=== PATIENT | female | born 1975 ===

== ENCOUNTER 2017-02-25 15:07 | Emergency (ER) | payer OTHER ==
[2017-02-25 15:07] VITALS: BMI 35.7
[2017-02-25] MEDS ORDERED: Sodium Chloride 0.9% 1,000 ML IV ONE (15:35)
[2017-02-25] MEDS ORDERED: Iohexol 240 (50 ml) PO ONE (15:41)
[2017-02-25] MEDS ORDERED: Sodium Chloride 0.9% 1,000 ML ONE (15:46)
[2017-02-25] MEDS ORDERED: Iohexol 240 (50 ml) ONE (15:46)
[2017-02-25 15:51] LABS: RBC URINE 1 /hpf (0-3); URINE BILIRUBIN NEGATIVE (NEGATIVE); URINE BLOOD NEGATIVE (NEGATIVE); URINE COLOR Yellow (YELLOW); URINE GLUCOSE (UA) NORMAL (Normal); URINE KETONE TRACE mg/dL (NEGATIVE); URINE LEUKOCYTE ESTERASE NEG Leu/uL (Negative); URINE PROTEIN NEGATIVE (NEGATIVE); URINE UROBILINOGEN NORMAL mg/dL (0.2-1.0); WBC URINE 2 /hpf (0-5)
[2017-02-25 15:51] LABS: BASO % 0.4 % (0.0-2.0); EOS # 0.1 K/uL (0.0-0.7); EOS % 0.9 % (0.0-4.0); HEMATOCRIT 38.5 % (34.0-47.0); LYMPH # 2.5 K/uL (1.0-4.3); LYMPH % 33.7 % (20.0-40.0); MEAN CELL VOLUME 86.1 fL (81.0-99.0); MEAN CORPUSCULAR HEMOGLOBIN 29.5 pg (27.0-31.0); MEAN CORPUSCULAR HGB CONC 34.3 g/dL (33.0-37.0); MEAN PLATELET VOLUME 8.2 fL (7.2-11.7); MONO # 0.4 K/uL (0.0-0.8); NRBC % 0.1 % (0.0-2.0); RED CELL DISTRIBUTION WIDTH 12.9 % (11.5-14.5); WHITE BLOOD COUNT 7.3 K/uL (4.8-10.8)
--- NOTE | 2017-02-25 16:02 | C.PDOC ---
History Of Present Illness 41 y/o female c/o LLQ pain associated with mild dysuria for 3 weeks. Patient took several doses of Ampicillin which she had at home but continues to have persistent discomfort. Patient never experienced this pain before. Denies fever , chills, nausea, vomiting, or diarrhea. No vaginal bleeding or discharge. No back pain. Time Seen by Provider: 02/25/17 15:28 Chief Complaint (Nursing): Abdominal Pain History Per: Patient History/Exam Limitations: no limitations Onset/Duration Of Symptoms: Days (3 weeks) Current Symptoms Are (Timing): Still Present Severity: Mild Location Of Pain/Discomfort: LLQ Quality Of Discomfort: "Pain" Associated Symptoms: denies: Fever, Chills, Nausea, Vomiting, Diarrhea, Back Pain Alleviating Factors: denies: OTC Meds (From another country, No relief) Recent travel outside of the [place]: No Additional History Per: Patient Abnormal Vaginal Bleeding: No Past Medical History Reviewed: Historical Data, Nursing Documentation, Vital Signs Vital Signs: Last Vital Signs Temp 97.9 F 02/25/17 18:16 Pulse 70 02/25/17 18:16 Resp 20 02/25/17 18:16 BP 105/71 02/25/17 18:16 Pulse Ox 100 02/25/17 18:16 Family History: States: Unknown Family Hx - Social History Hx Alcohol Use: No Hx Substance Use: No - Immunization History Hx Tetanus Toxoid Vaccination: No Hx Influenza Vaccination: No Hx Pneumococcal Vaccination: No Review Of Systems Except As Marked, All Systems Reviewed And Found Negative. Constitutional: Negative for: Fever, Chills Gastrointestinal: Positive for: Abdominal Pain (LLQ). Negative for: Nausea, Vomiting, Diarrhea Genitourinary: Positive for: Dysuria. Negative for: Vaginal Discharge, Vaginal Bleeding Musculoskeletal: Negative for: Back Pain Physical Exam - Physical Exam Appears: Non-toxic, No Acute Distress Skin: Warm, Dry Head: Atraumatic, Normacephalic Chest: Symmetrical Cardiovascular: Rhythm Regular, No Murmur Respiratory: Normal Breath Sounds, No Rales, No Rhonchi, No Wheezing Gastrointestinal/Abdominal: Soft, Tenderness (LLQ and suprapubic tenderness), No Guarding, No Rebound Back: Normal Inspection, No CVA Tenderness Neurological/Psych: Oriented x3 ED Course And Treatment - Laboratory Results Result Diagrams: 02/25/17 15:44 02/25/17 15:44 Lab Interpretation: No Acute Changes Urine POC: Negative Pulse Ox Interpretation: Normal - CT Scan/US Abdomen and Pelvis Other Rad Studies (CT/US): Read By Radiologist, Radiology Report Reviewed CT/US Interpretation: Accession No. : [id number]. Patient Name / ID : RG WISDOM / [id number]. Exam Date : 02/25/2017 17:23:33 ( Approved ). Study Comment : Sex / Age : F / 41Y. Creator : Shyann Pak MD. Dictator : Shyann Pak MD. Sales Forecast Analyst : Garment Turner : Shyann Pak MD. Approver2 : Report Date : 02/25/2017 17:55:42. My Comment : . PROCEDURE: CT Abdomen and Pelvis with oral and IV contrast. HISTORY: LLQ pain. COMPARISON: CT abdomen pelvis with contrast performed 12/24. TECHNIQUE: Contiguous axial images of the abdomen and pelvis. Oral and IV contrast was administered. Coronal and Sagittal reformats generated and reviewed. Contrast dose: 100 cc Visipaque 320. Radiation dose: Total exam DLP = 755.87 mGy-cm. This CT exam was performed using one or more of the following dose reduction techniques: Automated exposure control, adjustment of the mA and/or kV according to patient size, and/or use of iterative reconstruction technique. FINDINGS: LOWER THORAX: No visible consolidation, pleural effusion, or pneumothorax. LIVER: Unremarkable. GALLBLADDER AND BILE DUCTS: Unremarkable. PANCREAS: Unremarkable. SPLEEN: Unremarkable. ADRENALS: Unremarkable. KIDNEYS AND URETERS: The kidneys enhance symmetrically. No hydronephrosis or obstructing renal calculus. Nonobstructing bilateral renal calculi. BLADDER: The urinary bladder appears unremarkable. REPRODUCTIVE: Uterus is present. Probable left ovarian cysts measuring up to 1.8 cm. APPENDIX: The appendix appears within normal limits of caliber. No secondary signs of acute appendicitis. BOWEL: The stomach is nondistended. The bowel loops appear within normal limits of caliber without evidence of intestinal obstruction. Moderate constipation. PERITONEUM: No significant free fluid. No definite free air. LYMPH NODES: No bulky lymphadenopathy identified. VASCULATURE: No aortic aneurysm. BONES: Degenerative changes of the spine. OTHER FINDINGS: Tiny fat containing umbilical hernia. IMPRESSION: Nonobstructing bilateral renal calculi. Probable left ovarian cysts measuring up to 1.8 cm. Suggest pelvic ultrasound for further evaluation. Moderate constipation. Tiny fat containing umbilical hernia. Reevaluation Time: 18:44 Reassessment Condition: Improved Medical Decision Making Medical Decision Making: Plans: * CT Abd/Pel w/ IV and PO contrast * Blood labs * UA * IV fluids * Omnipaque Disposition Counseled Patient/Family Regarding: Studies Performed, Diagnosis, Need For Followup, Rx Given - Disposition Referrals: [facility] [Outside] Disposition: HOME/ ROUTINE Disposition Time: 18:49 Condition: STABLE Prescriptions: Naproxen [Naprosyn] 1 tab PO BID PRN #25 tab PRN Reason: Pain Instructions: Ovarian Cyst (ED), Constipation (ED) Forms: [employer] (Uzbek) Print Language: HAITIAN - Clinical Impression Clinical Impression: Constipation, Ovarian cyst - Scribe Statement The provider has reviewed the documentation as recorded by the Sebastianibmy miles All medical record entries made by the Sebastianibmy were at my direction and personally dictated by me. I have reviewed the chart and agree that the record accurately reflects my personal performance of the history, physical exam, medical decision making, and the department course for this patient. I have also personally directed, reviewed, and agree with the discharge instructions and disposition.
[2017-02-25 16:09] LABS: CHLORIDE 101 mmol/L (98-107)
[2017-02-25 16:10] LABS: POTASSIUM 3.5 mmol/L (3.6-5.2); SODIUM 136 mmol/L (132-148)
[2017-02-25 16:12] LABS: ALB/GLOB RATIO 1.1 (1.0-2.1); ALKALINE PHOSPHATASE 54 U/L (38-126); ALT/SGPT 43 U/L (9-52); AST/SGOT 25 U/L (14-36); BILIRUBIN,TOTAL 0.4 mg/dL (0.2-1.3); BLOOD UREA NITROGEN 11 mg/dL (7-17); CARBON DIOXIDE 23 mmol/L (22-30); GFR AFRICAN-AMERICAN > 60; GLUCOSE,RANDOM 77 mg/dL (65-105); TOTAL PROTEIN 7.9 g/dL (6.3-8.3)
[2017-02-25 16:13] LABS: CALCIUM 9.1 mg/dl (8.6-10.4)
--- NOTE | 2017-02-25 17:57 | CT ---
PROCEDURE: CT Abdomen and Pelvis with oral and IV contrast. HISTORY: LLQ pain COMPARISON: CT abdomen pelvis with contrast performed 12/25/15 TECHNIQUE: Contiguous axial images of the abdomen and pelvis. Oral and IV contrast was administered. Coronal and Sagittal reformats generated and reviewed. Contrast dose: 100 cc Visipaque 320 Radiation dose: Total exam DLP = 755.87 mGy-cm. This CT exam was performed using one or more of the following dose reduction techniques: Automated exposure control, adjustment of the mA and/or kV according to patient size, and/or use of iterative reconstruction technique. FINDINGS: LOWER THORAX: No visible consolidation, pleural effusion, or pneumothorax. LIVER: Unremarkable. GALLBLADDER AND BILE DUCTS: Unremarkable. PANCREAS: Unremarkable. SPLEEN: Unremarkable. ADRENALS: Unremarkable. KIDNEYS AND URETERS: The kidneys enhance symmetrically. No hydronephrosis or obstructing renal calculus. Nonobstructing bilateral renal calculi. BLADDER: The urinary bladder appears unremarkable. REPRODUCTIVE: Uterus is present. Probable left ovarian cysts measuring up to 1.8 cm. APPENDIX: The appendix appears within normal limits of caliber. No secondary signs of acute appendicitis. BOWEL: The stomach is nondistended. The bowel loops appear within normal limits of caliber without evidence of intestinal obstruction. Moderate constipation. PERITONEUM: No significant free fluid. No definite free air. LYMPH NODES: No bulky lymphadenopathy identified. VASCULATURE: No aortic aneurysm. BONES: Degenerative changes of the spine. OTHER FINDINGS: Tiny fat containing umbilical hernia. IMPRESSION: Nonobstructing bilateral renal calculi. Probable left ovarian cysts measuring up to 1.8 cm. Suggest pelvic ultrasound for further evaluation. Moderate constipation. Tiny fat containing umbilical hernia.
[2017-02-25 18:17] VITALS: RESP 20
[2017-02-25 19:01] VITALS: BP 115/76; PULSE 78; TEMP 97.5; O2SAT 99
== END 2017-02-25 19:09 | disposition home or self-care (01) ==
LOC: C.ER 15:07
DX: K59.00 Constipation, unspecified (principal); N83.209 Unspecified ovarian cyst, unspecified side
CPT/HCPCS: 74177; 80053; 81001; 83690; 84703; 85025; 96360; 99285; J7040; Q9966

== ENCOUNTER 2017-07-18 11:35 | Emergency (ER) | payer OTHER, SELFPAY ==
[2017-07-18 11:36] VITALS: BMI 35.7
[2017-07-18 11:49] VITALS: TEMP 98.6
--- NOTE | 2017-07-18 12:16 | C.PDOC ---
Time Seen by Provider: 07/18/17 11:58 Chief Complaint (Nursing): Cough, Cold, Congestion History Per: Patient Onset/Duration Of Symptoms: Days (4) Current Symptoms Are (Timing): Still Present Associated Symptoms: Sore Throat, Cough, Nasal Congestion Severity: Moderate Additional History Per: Prior Records Past Medical History Reviewed: Historical Data, Nursing Documentation, Vital Signs Vital Signs: Last Vital Signs Temp 98.6 F 07/18/17 11:45 Pulse 84 07/18/17 11:45 Resp 20 07/18/17 11:45 BP 145/84 07/18/17 11:45 Pulse Ox 97 07/18/17 11:45 - Medical History PMH: No Chronic Diseases Surgical History: No Surg Hx Family History: States: Unknown Family Hx - Social History Hx Tobacco Use: No Hx Alcohol Use: No Hx Substance Use: No - Immunization History Hx Tetanus Toxoid Vaccination: No Hx Influenza Vaccination: No Hx Pneumococcal Vaccination: No Review Of Systems Except As Marked, All Systems Reviewed And Found Negative. Constitutional: Negative for: Weakness ENT: Positive for: Nose Congestion, Throat Pain. Negative for: Ear Pain Respiratory: Positive for: Cough. Negative for: Shortness of Breath, Hemoptysis , Sputum Gastrointestinal: Negative for: Vomiting, Abdominal Pain, Diarrhea Genitourinary: Negative for: Dysuria Musculoskeletal: Negative for: Neck Pain Skin: Negative for: Rash Neurological: Negative for: Weakness, Numbness Physical Exam - Physical Exam Appears: Non-toxic, No Acute Distress Skin: Normal Color, Warm, Dry, No Rash Head: Atraumatic, Normacephalic Eye(s): bilateral: Normal Inspection, PERRL, EOMI Throat: Erythema, No Exudate, No Drooling, No Mass Neck: Normal ROM, Supple Lymphatic: No Adenopathy Cardiovascular: Rhythm Regular Respiratory: Normal Breath Sounds, No Accessory Muscle Use Gastrointestinal/Abdominal: Soft, No Tenderness Back: No CVA Tenderness Extremity: Normal ROM Neurological/Psych: Oriented x3, Normal Speech, Normal Motor, Normal Sensation ED Course And Treatment O2 Sat by Pulse Oximetry: 97 Pulse Ox Interpretation: Normal Disposition Counseled Patient/Family Regarding: Diagnosis, Need For Followup, Rx Given - Disposition Referrals: [facility] [Outside] Disposition: HOME/ ROUTINE Disposition Time: 12:16 Condition: STABLE Additional Instructions: Follow up in the clinic. Return to the ER if you develop shortness of breath, worsening of symptoms or if you have any other concerns. Prescriptions: Benzonatate 200 mg PO TID PRN #15 capsule PRN Reason: Cough predniSONE [predniSONE Tab] 2 tab PO DAILY #8 tab Instructions: Upper Respiratory Infection (ED) Forms: Gen Discharge Inst Guinean Print Language: KHMER - Clinical Impression Clinical Impression: Upper respiratory infection
[2017-07-18 12:42] VITALS: BP 138/78; PULSE 80; RESP 18; O2SAT 98
== END 2017-07-18 12:42 | disposition home or self-care (01) ==
LOC: C.ER 11:35
DX: J06.9 Acute upper respiratory infection, unspecified (principal)

== ENCOUNTER 2017-11-05 12:31 | Emergency (ER) | payer SELFPAY ==
[2017-11-05 12:31] VITALS: BMI 35.7
[2017-11-05 12:51] VITALS: BP 113/69; PULSE 70; RESP 20; TEMP 99; O2SAT 97
[2017-11-05 13:12] LABS: HCG,QUALITATIVE URINE NEGATIVE (NEGATIVE)
[2017-11-05 13:21] LABS: SQUAMOUS EPITHIAL 3 /hpf (0-5); URINE BILIRUBIN NEGATIVE (NEGATIVE); URINE BLOOD NEGATIVE (NEGATIVE); URINE CLARITY Clear (Clear); URINE COLOR Yellow (YELLOW); URINE GLUCOSE (UA) NORMAL (Normal); URINE LEUKOCYTE ESTERASE TRACE Leu/uL (Negative); URINE PROTEIN NEGATIVE (NEGATIVE)
--- NOTE | 2017-11-05 13:38 | C.PDOC ---
History Of Present Illness 42 y/o female presents to the ER complaining of dysuria with urination which has been present for the past 2 days. Patient is also complaining of mild LLQ tenderness which is related to her history of ovarian cysts. Patient states that she has history of chronic constipation and she ate 3 bananas for breakfast thinking that it would help her. Time Seen by Provider: 11/05/17 12:55 Chief Complaint (Nursing): Abdominal Pain History Per: Patient History/Exam Limitations: no limitations Onset/Duration Of Symptoms: Days Current Symptoms Are (Timing): Still Present Severity: Moderate Past Medical History Reviewed: Historical Data, Nursing Documentation, Vital Signs Vital Signs: Last Vital Signs Temp 99 F 11/05/17 12:47 Pulse 70 11/05/17 12:47 Resp 20 11/05/17 12:47 BP 113/69 11/05/17 12:47 Pulse Ox 97 11/05/17 13:46 - Medical History PMH: No Chronic Diseases Other Surgeries: Hx of surgeries Family History: States: No Known Family Hx - Social History Hx Tobacco Use: No Hx Alcohol Use: No Hx Substance Use: No - Immunization History Hx Tetanus Toxoid Vaccination: No Hx Influenza Vaccination: No Hx Pneumococcal Vaccination: No Review Of Systems Except As Marked, All Systems Reviewed And Found Negative. Constitutional: Negative for: Fever, Chills Gastrointestinal: Positive for: Abdominal Pain Genitourinary: Positive for: Dysuria. Negative for: Hematuria Physical Exam - Physical Exam Appears: Non-toxic, No Acute Distress Skin: Normal Color, Warm, Dry Head: Atraumatic, Normacephalic Eye(s): bilateral: Normal Inspection Nose: Normal Oral Mucosa: Moist Neck: Supple Chest: Symmetrical Cardiovascular: Rhythm Regular Respiratory: Normal Breath Sounds, No Rales, No Rhonchi, No Wheezing Gastrointestinal/Abdominal: Soft, Tenderness (LLQ tenderness), No Guarding, No Rebound Neurological/Psych: Oriented x3, Normal Speech ED Course And Treatment O2 Sat by Pulse Oximetry: 97 (RA) Pulse Ox Interpretation: Normal Medical Decision Making Medical Decision Making: constipation vs h/o ovarian cysts no UTI/preg recent vag US's show no ovarian cysts LOW susp of ovarian torsion motrin and reassurance and opt f/u. Disposition Doctor Will See Patient In The: Office Counseled Patient/Family Regarding: Studies Performed, Diagnosis - Disposition Referrals: [facility] [Outside] [facility] [Outside] [facility] [Outside] Disposition: HOME/ ROUTINE Disposition Time: 13:38 Condition: GOOD Additional Instructions: NO tiene infeccio'n en la orina NO hay embarasso. Estrenemiento: Paige un purgante ahora y re-evalua harris molestia del abdomen despues de hobrar 2- 3 veces Cystes del Ovario Sigue con [facility] para seguir vishal cuidados gynocologicos. Instructions: Colic, Constipation, Adult (DC), Dysuria, Adult (DC) Forms: [employer] (Solomon Islander) Print Language: KAZAKH - Clinical Impression Clinical Impression: Dysuria - Scribe Statement The provider has reviewed the documentation as recorded by the Scribe Lorna Cárdenas Provider Attestation: All medical record entries made by the Scribe were at my direction and personally dictated by me. I have reviewed the chart and agree that the record accurately reflects my personal performance of the history, physical exam, medical decision making, and the department course for this patient. I have also personally directed, reviewed, and agree with the discharge instructions and disposition.
== END 2017-11-05 13:49 | disposition home or self-care (01) ==
LOC: C.ER 12:31
DX: R30.0 Dysuria (principal)

== ENCOUNTER 2018-05-13 10:45 | Emergency (ER) | payer OTHER, SELFPAY ==
[2018-05-13 11:22] VITALS: BMI 30.2
[2018-05-13 11:25] VITALS: BP 120/77; PULSE 67; RESP 18; TEMP 98.1; O2SAT 96
[2018-05-13 12:05] LABS: SQUAMOUS EPITHIAL 2 /hpf (0-5); URINE BACTERIA RARE (<OCC); URINE BILIRUBIN NEGATIVE (NEGATIVE); URINE BLOOD NEGATIVE (NEGATIVE); URINE CLARITY Clear (Clear); URINE COLOR Yellow (YELLOW); URINE GLUCOSE (UA) NORMAL (Normal); URINE LEUKOCYTE ESTERASE TRACE Leu/uL (Negative); URINE PROTEIN NEGATIVE (NEGATIVE); URINE UROBILINOGEN NORMAL mg/dL (0.2-1.0)
--- NOTE | 2018-05-16 00:38 | C.PDOC ---
Time Seen by Provider: 05/13/18 11:20 Chief Complaint (Nursing): Female Genitourinary History Per: Patient History/Exam Limitations: language barrier (translated by sister) Past Medical History Reviewed: Historical Data, Nursing Documentation, Vital Signs Vital Signs: Last Vital Signs Temp 98.1 F 05/13/18 11:22 Pulse 67 05/13/18 11:22 Resp 18 05/13/18 11:22 BP 120/77 05/13/18 11:22 Pulse Ox 96 05/13/18 11:22 - Medical History PMH: No Chronic Diseases Family History: States: Unknown Family Hx - Social History Hx Tobacco Use: No Hx Alcohol Use: No Hx Substance Use: No - Immunization History Hx Tetanus Toxoid Vaccination: No Hx Influenza Vaccination: No Hx Pneumococcal Vaccination: No Review Of Systems Except As Marked, All Systems Reviewed And Found Negative. Constitutional: Negative for: Fever, Chills Eyes: Negative for: Vision Change ENT: Negative for: Nose Congestion Cardiovascular: Negative for: Chest Pain, Palpitations Respiratory: Negative for: Cough, Shortness of Breath Gastrointestinal: Negative for: Nausea, Vomiting, Abdominal Pain, Diarrhea, Constipation Genitourinary: Positive for: Other (vaginal mass with associated discomfort when sitting). Negative for: Dysuria, Frequency, Hematuria, Vaginal Discharge, Vaginal Bleeding Musculoskeletal: Negative for: Neck Pain, Back Pain Skin: Negative for: Rash Neurological: Negative for: Weakness, Numbness, Headache, Dizziness ED Course And Treatment - Laboratory Results Lab Results: Urine Color Yellow (YELLOW) 05/13/18 11:58 Urine Clarity Clear (Clear) 05/13/18 11:58 Urine pH 6.0 (5.0-8.0) 05/13/18 11:58 Ur Specific [place] 1.020 (1.003-1.030) 05/13/18 11:58 Urine Protein Negative mg/dL (NEGATIVE) 05/13/18 11:58 Urine Glucose (UA) Normal mg/dL (Normal) 05/13/18 11:58 Urine Ketones Negative mg/dL (NEGATIVE) 05/13/18 11:58 Urine Blood Negative (NEGATIVE) 05/13/18 11:58 Urine Nitrate Negative (NEGATIVE) 05/13/18 11:58 Urine Bilirubin Negative (NEGATIVE) 05/13/18 11:58 Urine Urobilinogen Normal mg/dL (0.2-1.0) 05/13/18 11:58 Ur Leukocyte Esterase Trace Molina/uL (Negative) 05/13/18 11:58 Urine WBC (Auto) 1 /hpf (0-5) 05/13/18 11:58 Urine RBC (Auto) < 1 /hpf (0-3) 05/13/18 11:58 Ur Squamous Epith Cells 2 /hpf (0-5) 05/13/18 11:58 Urine Bacteria Rare (<OCC) 05/13/18 11:58 Urine POC: Negative O2 Sat by Pulse Oximetry: 96 Disposition - Disposition Referrals: [facility] [Outside] [facility] [Outside] Bebo Gaffney MD [Staff Provider] - Disposition: HOME/ ROUTINE Disposition Time: 12:45 Condition: GOOD Additional Instructions: Followup with OBGYN or clinic within 2 days Return to ER with any new/worsening symptoms Instructions: Pelvic Floor Dysfunction (DC), Pelvic Organ Prolapse Forms: Gen Discharge Inst Azerbaijani, Work/School/Gym Excuse, [employer] (Azerbaijani) Print Language: TAJIK - Clinical Impression 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 Physical Exam - Reviewed Nursing Documentation Reviewed: Yes Vital Signs Reviewed: Yes - Physical Exam Appears: Positive for: Well, Non-toxic, No Acute Distress Head Exam: Positive for: ATRAUMATIC, NORMAL INSPECTION, NORMOCEPHALIC Skin: Positive for: Normal Color, Warm, DRY Eye Exam: Positive for: EOMI, Normal appearance, PERRL ENT: Positive for: Normal ENT Inspection Neck: Positive for: Normal, Painless ROM Cardiovascular/Chest: Positive for: Regular Rate, Rhythm Respiratory: Positive for: CNT, Normal Breath Sounds Pulses-Radial (L): 2+ Pulses-Radial (R): 2+ Gastrointestinal/Abdominal: Positive for: Normal Exam, Bowel Sounds (normal), Soft. Negative for: Tenderness Pelvic Exam: Positive for: External Exam Normal, Bimanual Exam Normal, No Cerv. Motion Tender, Other (Exam performed both lying down and standing ). Negative for: Speculum Exam Normal (2nd degree uterine prolapse), Active Bleeding, Blood, Discharge, Lesions, Mass, Tender W/Cervical Motion Extremity: Positive for: Normal ROM Neurologic/Psych: Positive for: Alert, Oriented, Gait (steady) Medical Decision Making Medical Decision Making: Initial Plan * POC preg * UA * Pelvic Exam Diagnostic testing results and plan of care discussed with patient. Strict instructions given regarding prescription use, importance of followup, and signs/symptoms to return to ER including fever, chills, abdominal pain, back pain, or any other new/worsening symptoms. Pt verbalized understanding of discussion. Patient is A&Ox3, ambluating with steady gait, with vital signs stable for discharge. History of Present Illness History Of Present Illness: 43 y/o female with no significant PMH presents to the ED c/o vaginal mass x 6 months. Describes mass as a "small ball". Mass is most noticeable to patient when she is standing, and is associated with discomfort when sitting. States she was seen in an ED prior to this visit with similar complaints and told that her uterus is dropping. She has not seen her PMD or an OBGYN for this complaint. Pt has a history of two vaginal deliveries, last 9 years ago. Denies fever, chills, urinary symptoms, bowel/bladder incontinence, vaginal bleeding, vaginal discharge, vaginal odor, vaginal itching, back pain, abdominal pain, N/V, or any other associated symptoms.
== END 2018-05-13 13:08 | disposition home or self-care (01) ==
LOC: C.ER 10:45
DX: N81.89 Other female genital prolapse (principal)